=== PATIENT | female | born 1985 | race Caucasian/White ===

== ENCOUNTER 2021-12-22 20:46 | Emergency (ER) | payer OTHER ==
--- NOTE | 2021-12-22 21:10 | EDPHYS ---
Physician Documentation [facility] Name: Julio Mancilla Age: 36 yrs Sex: Female : 1985 Arrival Date: 12/22/2021 Time: 20:50 Bed 18 Private MD: ED Physician Ashish Byers HPI: 12/22 21:29 This 36 yrs old Female presents to ER via Ambulatory with complaints of Needle Stick kb Exposure. 21:29 Type of Exposure: needlestick. Area of exposure: palmar aspect of distal phalanx of kb left index finger. Context: The problem was sustained in the [facility] inpatient floor. Onset: The symptoms/episode began/occurred just prior to arrival. Symptoms: The patient does not have any acute complaints. The patient has not experienced similar symptoms in the past. The patient has not recently seen a physician. 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 - Social history:: Smoking status: Patient denies any tobacco usage or history of. ROS: 21:26 Constitutional: Negative for fever, chills, and weight loss. kb 21:26 Skin: Positive for puncture, of the palmar aspect of distal phalanx of left index finger. 21:26 All other systems are negative. Exam: 21:26 Constitutional: This is a well developed, well nourished patient who is awake, alert, kb and in no acute distress. Head/Face: Normocephalic, atraumatic. Cardiovascular: Regular rate and rhythm with a normal S1 and S2. No gallops, murmurs, or rubs. No pulse deficits. Respiratory: Respirations even and unlabored. No increased work of breathing. Talking in full sentences Abdomen/GI: Soft, non-tender. No distention MS/ Extremity: Pulses equal, no cyanosis. Neurovascular intact. Full, normal range of motion. Neuro: Awake and alert, GCS 15, oriented to person, place, time, and situation. Moves all extremities. Normal gait. Psych: Awake, alert, with orientation to person, place and time. Behavior, mood, and affect are within normal limits. 21:26 Skin: injury, puncture(s), that are superficial, of the palmar aspect of distal phalanx of left index finger. Vital Signs: 20:57 BP 114 / 85; Pulse 109; Resp 18; Temp 98.3; Pulse Ox 100% on R/A; Weight 52.16 kg; tw5 Height 5 ft. 3 in. (160.02 cm); Pain 0/10; 20:57 Body Mass Index 20.37 (52.16 kg, 160.02 cm) tw5 MDM: 20:50 Patient medically screened. kb 21:16 Data reviewed: vital signs, nurses notes. Data interpreted: Pulse oximetry: on room air kb is 100 %. Interpretation: normal. Counseling: I had a detailed discussion with the patient and/or guardian regarding: the historical points, exam findings, and any diagnostic results supporting the discharge/admit diagnosis, the need for outpatient follow up, a family practitioner, to return to the emergency department if symptoms worsen or persist or if there are any questions or concerns that arise at home. ED course: Offered pt prophylactic treatment. Pt declines medications at this time. . 12/22 20:55 Order name: HIV AG/AB, 4th Gen W/ Reflex EDNM 12/22 20:55 Order name: Hep B Surface AG w/ Confirm EDNM 12/22 20:55 Order name: Hepatitis B Core IgM Antibody EDNM 12/22 20:55 Order name: HCV w/reflex PCR EDNM Administered Medications: No medications were administered Disposition Summary: 12/22/21 21:10 Discharge Ordered Location: Home kb Condition: Stable kb Diagnosis - Puncture wound without foreign body of left index finger without damage to nail, kb initial encounter - Contact with hypodermic needle, initial encounter kb Followup: kb - With: Emergency Department - When: As needed - Reason: Worsening of condition Followup: kb - With: Private Physician - When: 2 - 3 days - Reason: Recheck today's complaints, Continuance of care, Re-evaluation by your physician Discharge Instructions: - Discharge Summary Sheet kb - Needlestick and Sharps Injury, [id number] kb Forms: - Medication Reconciliation Form kb - Thank You Letter kb - Antibiotic Education kb - Prescription Opioid Use kb Signatures: Dispatcher [employer] EDMS Bell Munoz FNP-C FNP-Ckb Lesly Nichols tw5
--- NOTE | 2021-12-22 21:10 | ER ---
Nurse's Notes [facility] Name: Julio Mancilla Age: 36 yrs Sex: Female : 1985 Arrival Date: 12/22/2021 Time: 20:50 Bed 18 Private MD: Diagnosis: Puncture wound without foreign body of left index finger without damage to nail, initial encounter;Contact with hypodermic needle, initial encounter Presentation: 12/22 20:57 Chief complaint: Patient states: "i was cleaning a patients room and I felt a sting and tw5 I realized as I was throwing away the trash there was a needle.". Coronavirus screen: Vaccine status: Patient reports receiving the 2nd dose of the covid vaccine. Moderna. Ebola Screen: Patient negative for fever greater than or equal to 101.5 degrees Fahrenheit, and additional compatible Ebola Virus Disease symptoms Patient denies exposure to infectious person. Patient denies travel to an Ebola-affected area in the 21 days before illness onset. Initial Sepsis Screen: Does the patient meet any 2 criteria? No. Patient's initial sepsis screen is negative. Does the patient have a suspected source of infection? No. Patient's initial sepsis screen is negative. Risk Assessment: Do you want to hurt yourself or someone else? Patient reports no desire to harm self or others. Onset of symptoms was December 22, 2021 at 20:30. 20:57 Method Of Arrival: Ambulatory tw5 20:57 Acuity: CHRISTOPHER 4 tw5 Triage Assessment: 20:58 General: Appears in no apparent distress. Behavior is calm, cooperative, appropriate tw5 for age. Pain: Denies pain. 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 - Social history:: Smoking status: Patient denies any tobacco usage or history of. Screenin:28 Abuse screen: Denies threats or abuse. Denies injuries from another. Nutritional sm5 screening: No deficits noted. Tuberculosis screening: No symptoms or risk factors identified. Fall Risk None identified. Assessment: 21:27 General: Appears in no apparent distress. Behavior is cooperative. Neuro: Level of sm5 Consciousness is awake, alert, obeys commands, Oriented to person, place, time, situation. Cardiovascular: Capillary refill < 3 seconds Patient's skin is warm and dry. Respiratory: Airway is patent Trachea midline Respiratory effort is even, unlabored. Vital Signs: 20:57 BP 114 / 85; Pulse 109; Resp 18; Temp 98.3; Pulse Ox 100% on R/A; Weight 52.16 kg; tw5 Height 5 ft. 3 in. (160.02 cm); Pain 0/10; 20:57 Body Mass Index 20.37 (52.16 kg, 160.02 cm) tw5 ED Course: 20:50 Patient arrived in ED. bp1 20:50 Bell Munoz FNP-C is [facility]. kb 20:50 Ashish Byers MD is Attending Physician. kb 20:58 Triage completed. tw5 20:58 Arm band placed on. tw5 21:01 Herlinda Arias, DU is Primary Nurse. sm5 21:28 Patient has correct armband on for positive identification. Bed in low position. Call sm5 light in reach. Side rails up X2. 21:28 No provider procedures requiring assistance completed. Patient did not have IV access sm5 during this emergency room visit. Administered Medications: No medications were administered Medication: 21:28 VIS not applicable for this client. sm5 Outcome: 21:10 Discharge ordered by . kb 21:28 Discharged to home ambulatory. sm5 21:28 Condition: stable 21:28 Discharge instructions given to patient, Instructed on discharge instructions, follow up and referral plans. Demonstrated understanding of instructions, follow-up care. 21:29 Patient left the ED. sm5 Signatures: Bell Munoz FNP-C FNP-Perla Hassan bp1 Lesly Nichols tw5 Herlinda Arias, DU RN 5
[2021-12-22 22:20] VITALS: BP 114/85; TEMP 98.3; O2SAT 100
== END 2021-12-22 21:29 | disposition home or self-care (01) ==
LOC: ER 20:46
DX: S61.231A Puncture wound without foreign body of left index finger without damage to nail, initial encounter (principal); W46.1XXA Contact with contaminated hypodermic needle, initial encounter
CPT/HCPCS: 86705; 86803; 87340; 87389